=== PATIENT | male | born 1970 | race Caucasian/White ===

== ENCOUNTER 2022-12-07 15:07 | Observation (INO) ==
[2022-12-07] MEDS ORDERED: OPTIRAY 320 500ml IV ONE (15:20)
--- NOTE | 2022-12-07 15:20 | Emergency Department Note ---
Impression & Plan Chronic left arterial ischemic stroke, MCA (middle cerebral artery), Weakness, Diplopia, Stroke-like symptoms, Tobacco use ED Provider Note Provider: Klever Sarmiento MD DATE OF SERVICE: 12/07/2022 CHIEF COMPLAINT: Headache, dizzy HISTORY OF PRESENT ILLNESS: Patient is a 52-year-old gentleman history reported of CVA presenting via ambulance from apartment today with report of severe headache starting around 8 AM this morning with associated dizziness and diplopia per EMS report. Evidently had an old CVA and has some chronic right- sided deficit according to EMS. They states that maybe these are little bit worse today was made a stroke alert prior to arrival. States that his right arm and leg are working quite as well as speech is worse with the dizziness and diplopia starting at 8 AM. Did not take anything prior to arrival. Denies any trauma again. Does not see a doctor and does not take normal medications. Strokes he states about 8 years ago at [place]. Denies recent illness. PAST MEDICAL HISTORY: As noted above MEDICATIONS: Denies current home medications SOCIAL HISTORY: Lives by himself, smoker PHYSICAL EXAM: GENERAL: alert and oriented in no acute distress on stretcher Head: normocephalic and atraumatic EYES: No injection, discharge or icterus. PERRL, EOMI. NECK: Trachea midline. Supple. ENT: Mucous membranes pink and moist. Pharynx without erythema or exudate. LUNGS: Airway patent. No retractions. Breath sounds clear HEART: Regular rate and rhythm. No chest wall tenderness ABDOMEN: Soft and non-tender, without guarding or rebound. SKIN: Acyanotic, warm, dry, without rashes EXTREMITIES: Some chronic contracture of the right arm/wrist as well as in the right lower leg with some muscle wasting here as well as a right lower leg foot drop prostatic. No significant swelling of the lower extremities. NEUROLOGICAL: Patient with some dysarthria/slurred speech. May be a trace right facial droop. Paralysis of the right arm and leg. Does have some chronic contracture here as well as a foot brace on the right lower extremity but patient states the symptoms are worse. No sensation in the right arm and leg. No significant decrease in sensation in the face per his report. No gross visual field deficits appreciated. EK bpm normal sinus rhythm. No PVC or PAC. No acute ST segment elevation or depression with a QTc of 426. CONTINUOUS CARDIAC MONITORING: was ordered and showed a heart rate of 60s bpm in normal sinus rhythm Patient's laboratory studies and imaging reviewed. Differential includes Infection, dehydration, metabolic abnormality, hypo/hyperglycemia, electrolyte disturbance, anemia, hypoxia, cardiac sources, intracerebral event/neurologic, as well as other pathologies. IMPRESSION/MEDICAL DECISION MAKING: Patient with significant CVA history but not on any antiplatelet agents or home medications by report. Onset around 8 AM per the patient report without trauma. Dizziness diplopia with worsening right-sided weakness and near paralysis at this point of the arm and the leg with slurred speech. Does have some chronic deficits with the patient status worse. Unfortunately outside the window for thrombolytic therapy (TPA/TNK) given the timing (>4.5hrs). CTs and CTAs obtained to look for bleed as well as possible vascular issue. No seizure-like activity reported. No recent illness and afebrile here without leukocytosis doubt meningitis or encephalitis. Not severely hypertensive. May have some c omponent of recrudescence from prior large territory MCA issue. CT angiograms per radiology with out significant acute vascular abnormality noted. May still be small vessel CVA but outside of time window and the headache is somewhat atypical. Given his worse neurological symptoms discussed with him staying for further evaluation here. Hospitalist contacted. DIAGNOSIS: Headache, dizziness, right-sided paralysis, history of CVA DISPOSITION: Hospitalist will evaluate Patient was agreeable with this plan. Past Med/Surg History Medical History Chronic left arterial ischemic stroke, MCA (middle cerebral artery) Tobacco use Social History Smoking Status: Current every day smoker Preferred Language: Irish Feels Safe at Home: Yes Allergies Allergies Allergy/AdvReac Type Severity Reaction Status Date / Time No Known Allergies Allergy Mild Unverified 07/31/08 17:29 Home Meds Home Medications Medication Instructions Recorded Confirmed None (Patient States No Home Meds) ##0 07/31/08 Metoclopramide (Reglan) 10 mg PO ACHS ##0 06/24/09 REVIEWED ##0 10/02/09 Zolpidem Tartrate (Ambien *) 10 mg PO HS PRN ##0 10/02/09 !Med List Verified In Ed ##0 11/02/09 Previous Rx's Medication Instructions Recorded Cyclobenzaprine Hcl (Flexeril *) 10 mg PO TID 5 days ##0 09/09/07 Hydrocodone/Acetaminophen 1 tab PO Q4-6HR PRN ##25 09/09/07 5MG/500MG (Vicodin 5MG/500MG) Hydrocodone/Acetaminophen 1 - 2 tab PO Q6HR PRN ##20 07/31/08 5MG/500MG (Vicodin 5MG/500MG) Cyclobenzaprine Hcl (Flexeril *) 10 mg PO TID ##15 09/26/08 Propoxyphene Hcl (Darvon *) 1 tab PO Q4HR PRN ##20 09/26/08 Carisoprodol (Soma) 350 mg PO Q6HR PRN ##20 11/02/09 Hydrocodone/Acetaminophen 1 - 2 tabs PO Q6HR PRN ##10 11/02/09 5MG/500MG (Vicodin 5MG/500MG) REVIEWED ##0 11/02/09 Results & Data (ED) Vital Signs Vital Signs - 24 hr 12/07/22 15:07 12/07/22 15:27 12/07/22 15:26 Temperature 37.2 C Temperature Source Oral Pulse Rate 67 66 64 Pulse Rate from SpO2 Sensor 66 Respiratory Rate 18 21 Respiratory Effort / Characteristics Non-Labored Respiratory Depth Normal Respiratory Pattern Regular Blood Pressure 141/75 H 141/75 H Blood Pressure Mean 97 97 Pulse Oximetry 99 99 Oxygen Delivery Method Room Air Sepsis Recent Fever Within 48 Hours No Sepsis New/Unexplained Change in Mental Status N/A Sepsis Action Taken by Nursing No Action Required 12/07/22 16:10 12/07/22 16:30 12/07/22 17:58 Temperature Temperature Source Pulse Rate 49 L 56 L 73 Pulse Rate from SpO2 Sensor 55 L 75 Respiratory Rate 15 18 15 Respiratory Effort / Characteristics Respiratory Depth Respiratory Pattern Blood Pressure 114/70 131/78 135/108 H Blood Pressure Mean 84 95 117 Pulse Oximetry 100 94 Oxygen Delivery Method Sepsis Recent Fever Within 48 Hours Sepsis New/Unexplained Change in Mental Status Sepsis Action Taken by Nursing 12/07/22 18:00 12/07/22 18:30 12/07/22 19:23 Temperature Temperature Source Pulse Rate 54 L 65 62 Pulse Rate from SpO2 Sensor 55 L 62 Respiratory Rate 12 13 Respiratory Effort / Characteristics Respiratory Depth Respiratory Pattern Blood Pressure 157/76 H 173/87 H Blood Pressure Mean 103 115 Pulse Oximetry 100 98 Oxygen Delivery Method Sepsis Recent Fever Within 48 Hours Sepsis New/Unexplained Change in Mental Status Sepsis Action Taken by Nursing 12/07/22 19:52 Temperature Temperature Source Pulse Rate Pulse Rate from SpO2 Sensor Respiratory Rate Respiratory Effort / Characteristics Respiratory Depth Respiratory Pattern Blood Pressure 148/77 H Blood Pressure Mean Pulse Oximetry Oxygen Delivery Method Room Air Sepsis Recent Fever Within 48 Hours Sepsis New/Unexplained Change in Mental Status Sepsis Action Taken by Nursing Laboratory Data 12/07/22 15:11 12/07/22 15:11 Lab Results 12/07/22 12/07/22 12/07/22 Range/Units 15:11 15:11 15:11 WBC 7.73 (4.8-10.8) K/ul RBC 5.00 (4.70-6.10) M/uL Hgb 15.4 (14.0-18.0) g/dl POC Hgb (14.0-18.0) g/dl Hct 44.7 (42.0-52.0) % POC Hct (42-52) % MCV 89.4 (80.0-100.0) fL MCH 30.8 (25.0-34.0) pg MCHC 34.5 (32.0-36.0) g/dL RDW Std Deviation 44.3 (36.4-46.3) fL RDW Coeff of Siddharth 13.6 (11.5-14.5) % Plt Count 246 (130-400) K/uL MPV 9.7 (9.4-12.4) fL Immature Gran % (Auto) 0.4 % Neut % (Auto) 80.4 % Lymph % (Auto) 13.8 % [place] % (Auto) 4.1 % Eos % (Auto) 0.3 % Baso % (Auto) 1.0 % Neut # (Auto) 6.21 (1.40-6.50) K/uL Lymph # (Auto) 1.07 L (1.2-3.4) K/uL [place] # (Auto) 0.32 (0.11-0.59) K/uL Eos # (Auto) 0.02 (0-0.50) K/uL Baso # (Auto) 0.08 (0-0.2) K/uL Immature Gran # (Auto) 0.03 (0.01-0.20) K/uL PT 10.7 (9.0-12.0) Seconds INR 1.0 (0.9-1.1) APTT 27.3 (21.0-31.0) Seconds PTT Ratio 1.0 POC Sodium (135-144) mmol/L Sodium 138 (136-145) mmol/L POC Potassium (3.3-5.0) mmol/L Potassium 3.7 (3.5-5.1) mmol/L POC Chloride (101-112) mmol/L Chloride 106 (98-107) mmol/L Carbon Dioxide 25 (21-32) mmol/L POC Total CO2 (24-31) mmol/L Anion Gap 7 (3-11) POC Anion Gap (16-25) mmol/L POC BUN (7-18) mg/dl BUN 18 (6-23) mg/dl Creatinine 0.87 (0.6-1.4) mg/dl POC Creatinine (0.6-1.3) mg/dl Est Cr Clr Drug Dosing Not Reportable Est GFR ( Amer) 114.2 ml/min Est GFR (Non-Af Amer) 98.5 ml/min BUN/Creatinine Ratio 20.7 H (10-20) Glucose 84 (70-99(Fasting)) mg/dl POC Glucose (other) (70-99) mg/dl Calcium 9.3 (8.6-10.3) mg/dl POC Ioniz Calcium Elisabeth (1.12-1.32) mmol/l Magnesium 2.1 (1.7-2.4) mg/dl Total Bilirubin 0.4 (0.2-1.0) mg/dl AST 16 (13-39) U/L ALT 15 (7-52) U/L Alkaline Phosphatase 43 (34-104) U/L Troponin I High Sens 2.6 (0-20) pg/ml Total Protein 6.7 (6.0-8.3) gm/dl Albumin 3.9 (3.4-5.0) gm/dl Globulin 2.8 (2.5-4.0) gm/dl Albumin/Globulin Ratio 1.4 (0.9-2) Urine Color Urine Appearance (Clear) Urine pH (4.5-7.5) Ur Specific [place] (1.000-1.030) Urine Protein (Negative) Urine Glucose (UA) (Negative) Urine Ketones (Negative) Urine Blood (Negative) Urine Nitrite (Negative) Urine Bilirubin (Negative) Urine Urobilinogen (Negative) Ur Leukocyte Esterase (Negative) SARS-CoV-2, RNA, NAAT (NEGATIVE) 12/07/22 12/07/22 12/07/22 Range/Units 15:26 15:38 16:00 WBC (4.8-10.8) K/ul RBC (4.70-6.10) M/uL Hgb (14.0-18.0) g/dl POC Hgb 14.3 (14.0-18.0) g/dl Hct (42.0-52.0) % POC Hct 42 (42-52) % MCV (80.0-100.0) fL MCH (25.0-34.0) pg MCHC (32.0-36.0) g/dL RDW Std Deviation (36.4-46.3) fL RDW Coeff of Siddharth (11.5-14.5) % Plt Count (130-400) K/uL MPV (9.4-12.4) fL Immature Gran % (Auto) % Neut % (Auto) % Lymph % (Auto) % [place] % (Auto) % Eos % (Auto) % Baso % (Auto) % Neut # (Auto) (1.40-6.50) K/uL Lymph # (Auto) (1.2-3.4) K/uL [place] # (Auto) (0.11-0.59) K/uL Eos # (Auto) (0-0.50) K/uL Baso # (Auto) (0-0.2) K/uL Immature Gran # (Auto) (0.01-0.20) K/uL PT (9.0-12.0) Seconds INR (0.9-1.1) APTT (21.0-31.0) Seconds PTT Ratio POC Sodium 137 (135-144) mmol/L Sodium (136-145) mmol/L POC Potassium 3.7 (3.3-5.0) mmol/L Potassium (3.5-5.1) mmol/L POC Chloride 101 (101-112) mmol/L Chloride (98-107) mmol/L Carbon Dioxide (21-32) mmol/L POC Total CO2 26 (24-31) mmol/L Anion Gap (3-11) POC Anion Gap 15.0 L (16-25) mmol/L POC BUN 23 H (7-18) mg/dl BUN (6-23) mg/dl Creatinine (0.6-1.4) mg/dl POC Creatinine 0.8 (0.6-1.3) mg/dl Est Cr Clr Drug Dosing Est GFR ( Amer) ml/min Est GFR (Non-Af Amer) ml/min BUN/Creatinine Ratio (10-20) Glucose (70-99(Fasting)) mg/dl POC Glucose (other) 113 H (70-99) mg/dl Calcium (8.6-10.3) mg/dl POC Ioniz Calcium Elisabeth 1.17 (1.12-1.32) mmol/l Magnesium (1.7-2.4) mg/dl Total Bilirubin (0.2-1.0) mg/dl AST (13-39) U/L ALT (7-52) U/L Alkaline Phosphatase (34-104) U/L Troponin I High Sens (0-20) pg/ml Total Protein (6.0-8.3) gm/dl Albumin (3.4-5.0) gm/dl Globulin (2.5-4.0) gm/dl Albumin/Globulin Ratio (0.9-2) Urine Color Yellow Urine Appearance Clear (Clear) Urine pH 5.0 (4.5-7.5) Ur Specific [place] > 1.045 H (1.000-1.030) Urine Protein Negative (Negative) Urine Glucose (UA) 1+ H (Negative) Urine Ketones Negative (Negative) Urine Blood Negative (Negative) Urine Nitrite Negative (Negative) Urine Bilirubin Negative (Negative) Urine Urobilinogen Negative (Negative) Ur Leukocyte Esterase Negative (Negative) SARS-CoV-2, RNA, NAAT NEGATIVE (NEGATIVE) Administered Medications Discontinued Medications Aspirin (Aspirin 300 Mg Supp) 300 mg WA NOW STA Stop: 12/07/22 16:58 Last Admin: 12/07/22 17:49 Dose: 300 mg Documented By: GERDA Acetaminophen (Ofirmev) 1,000 mg in 100 mls @ 400 mls/hr IV NOW STA Stop: 12/07/22 15:57 Last Infusion: 12/07/22 16:15 Dose: 0 mls/hr Documented By: Admin: 12/07/22 15:59 Dose: 400 mls/hr Documented By: GERDA Ioversol (Optiray 320 500ml) 109 ml IV ONCE ONE Stop: 12/07/22 15:21 Last Admin: 12/07/22 15:20 Dose: 109 ml Documented By: DOMINGO Metoclopramide HCl (Metoclopramide Hcl Inj 5 Mg/Ml 2 Ml Vial) 5 mg IV ONE ONE Stop: 12/07/22 15:47 Last Admin: 12/07/22 15:58 Dose: 5 mg Documented By: GERDA Imaging Data Radiologist's Impression: Head CT 12/07/22 15:06 CT head/brain wo con CLINICAL HISTORY: 52 years-old Male with neuro deficit, acute stroke suspected. Acute stroke like symptoms TECHNIQUE: Multiple axial CT images of the head were obtained without contrast. A dose lowering technique was utilized adhering to the principles of ALARA. CT DOSE: 1195.65 mGy.cm COMPARISON: None. FINDINGS: No acute intracranial hemorrhage, midline shift, intracranial mass, hydrocephalus, territorial ischemia or abnormal extra-axial collection. Calcifications of the falx cerebri. Large chronic left MCA infarct with encephalomalacia and ex vacuo ventriculomegaly of the left lateral ventricle. Calcifications of the falx cerebri. The calvarium is intact. Metopic suture. 1.9 cm calcified structure within the left ethmoid air cells on image 4 series 3, possibly an osteoma. Small left mastoid effusion. IMPRESSION: 1. No acute intracranial abnormality. 2. Large chronic left MCA infarct. ACT 112: Negative or not required by law. The above report was generated using voice recognition software. It may contain grammatical, syntax or spelling errors. Electronically signed by: Juan Contreras M.D. 12/07/2022 3:25 PM Head CTA 12/07/22 15:06 CT ANGIOGRAM OF THE BRAIN; CT ANGIOGRAM OF THE NECK CLINICAL HISTORY: Neurological deficit. Stroke like symptoms. Right-sided weakness. COMPARISON STUDY: Unenhanced CT of the brain performed the same day 12/07/2022. TECHNIQUE: Following the IV administration of 109 of Optiray 320, CT angiogram of the head and neck was performed from the aortic arch to the vertex. Images are reviewed in the axial, sagittal, and coronal planes. 3-D MIPS images are created and assessed. IV contrast was administered without complication. All measurements were calculated based on NASCET criteria. A dose lowering technique was utilized adhering to the principles of ALARA. FINDINGS: Brain parenchyma: Left MCA territory encephalomalacia is consistent with a remote insult. There is no evidence of hemorrhage, mass effect, or acute territorial ischemia noting angiographic phase technique. There is no evidence of enhancing mass lesion on the angiogram phase images. The ventricles, sulci, and cisterns are normal in configuration. Mehta-white matter differentiation is preserved. No extra-axial fluid collection is seen. Thoracic aorta: Visualized portions of the thoracic aorta are normal in caliber. The aortic arch demonstrates standard 3-vessel anatomy. Right carotid arterial system: The right common carotid arteries widely patent, as are the right internal and external carotid arteries. Calcified plaque is noted in the carotid bulb. Left carotid arterial system: The left common carotid artery is widely patent, as are the left internal and external carotid arteries. Calcified plaque is noted in the carotid bulb. Vertebral arteries: Widely patent bilaterally and codominant. Subclavian arteries: Widely patent bilaterally. Intracranial vasculature: The internal carotid arteries are patent at the skull base, as are the anterior and middle cerebral arteries bilaterally. There is pruning of the peripheral branches of the left MCA territory, likely due to remote hemispheric infarct. The vertebrobasilar system and posterior cerebral arteries are patent. The vertebral arteries are codominant. There is no aneurysm, high-grade stenosis, or focal vessel cut off seen throughout the intracranial circulation. Jugular veins: Patent bilaterally. Dural sinuses: Patent. Lung apices: There is mild emphysematous change. Upper lobe lung parenchyma is otherwise clear as imaged. Soft tissues: The visualized pharyngeal soft tissues are normal in appearance noting angiographic phase technique. The oropharyngeal airway appears widely patent. The salivary and thyroid glands are normal in appearance. No cervical lymphadenopathy is seen. Skeletal structures: The calvarium appears intact. The cervical spine is maintained noting mild multilevel spondylosis. No lytic or blastic lesion is seen. Orbits: The bony orbits are intact. Orbital contents are normal as visualized. Sinuses and mastoids: There is moderate mucosal thickening in the right sphenoid sinus. 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 The remaining paranasal sinuses are clear. There is a small left mastoid effusion. The right mastoid air cells are well pneumatized. Cerumen is noted within the external auditory canals. IMPRESSION: 1.There is no evidence of hemorrhage, mass effect, or acute territorial ischemia noting angiographic phase technique. 2. Remote left MCA territory infarct. 3. Unremarkable CT angiogram of the brain. 4. Unremarkable CT angiogram of the neck. 5. Mild emphysema. ACT 112: Negative or not required by law. Electronically signed by: Nick Valadez M.D. 12/07/2022 3:38 PM Neck CTA 12/07/22 15:06 CT ANGIOGRAM OF THE BRAIN; CT ANGIOGRAM OF THE NECK CLINICAL HISTORY: Neurological deficit. Stroke like symptoms. Right-sided weakness. COMPARISON STUDY: Unenhanced CT of the brain performed the same day 12/07/2022. TECHNIQUE: Following the IV administration of 109 of Optiray 320, CT angiogram of the head and neck was performed from the aortic arch to the vertex. Images are reviewed in the axial, sagittal, and coronal planes. 3-D MIPS images are created and assessed. IV contrast was administered without complication. All measurements were calculated based on NASCET criteria. A dose lowering technique was utilized adhering to the principles of ALARA. FINDINGS: Brain parenchyma: Left MCA territory encephalomalacia is consistent with a remote insult. There is no evidence of hemorrhage, mass effect, or acute territorial ischemia noting angiographic phase technique. There is no evidence o f enhancing mass lesion on the angiogram phase images. The ventricles, sulci, and cisterns are normal in configuration. Mehta-white matter differentiation is preserved. No extra-axial fluid collection is seen. Thoracic aorta: Visualized portions of the thoracic aorta are normal in caliber. The aortic arch demonstrates standard 3-vessel anatomy. Right carotid arterial system: The right common carotid arteries widely patent, as are the right internal and external carotid arteries. Calcified plaque is noted in the carotid bulb. Left carotid arterial system: The left common carotid artery is widely patent, as are the left internal and external carotid arteries. Calcified plaque is noted in the carotid bulb. Vertebral arteries: Widely patent bilaterally and codominant. Subclavian arteries: Widely patent bilaterally. Intracranial vasculature: The internal carotid arteries are patent at the skull base, as are the anterior and middle cerebral arteries bilaterally. There is pruning of the peripheral branches of the left MCA territory, likely due to remote hemispheric infarct. The vertebrobasilar system and posterior cerebral arteries are patent. The vertebral arteries are codominant. There is no aneurysm, high-grade stenosis, or focal vessel cut off seen throughout the intracranial circulation. Jugular veins: Patent bilaterally. Dural sinuses: Patent. Lung apices: There is mild emphysematous change. Upper lobe lung parenchyma is otherwise clear as imaged. Soft tissues: The visualized pharyngeal soft tissues are normal in appearance noting angiographic phase technique. The oropharyngeal airway appears widely patent. The salivary and thyroid glands are normal in appearance. No cervical lymphadenopathy is seen. Skeletal structures: The calvarium appears intact. The cervical spine is maintained noting mild multilevel spondylosis. No lytic or blastic lesion is seen. Orbits: The bony orbits are intact. Orbital contents are normal as visualized. Sinuses and mastoids: There is moderate mucosal thickening in the right sphenoid sinus. 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 The remaining paranasal sinuses are clear. There is a small left mastoid effusion. The right mastoid air cells are well pneumatized. Cerumen is noted within the external auditory canals. IMPRESSION: 1.There is no evidence of hemorrhage, mass effect, or acute territorial ischemia noting angiographic phase technique. 2. Remote left MCA territory infarct. 3. Unremarkable CT angiogram of the brain. 4. Unremarkable CT angiogram of the neck. 5. Mild emphysema. ACT 112: Negative or not required by law. Electronically signed by: Nick Valadez M.D. 12/07/2022 3:38 PM Brain MRI 12/07/22 16:29 MR brain wo con CLINICAL HISTORY: cva TECHNIQUE: Multiplanar and multisequence MR images of the brain were obtained without intravenous contrast. Comparison: Comparison is made to CTA head and neck 12/07/2022 FINDINGS: No abnormal restricted diffusion is identified. The white matter is unremarkable. The ventricular system is normal in appearance. Large MCA focus of encephalomalacia is seen compatible with prior infarct. There is no mass effect or midline shift. Hemosiderin deposition is seen about the old infarct site. Calcifications of the anterior falx are noted. No extra axial fluid collections are seen. The corpus callosum, pituitary gland, and cerebellar tonsils appear grossly unremarkable. Flow voids of the major intracranial arterial vessels are identified. The imaged portions of the paranasal sinuses, mastoid air cells, and orbits are u nremarkable. IMPRESSION: No acute abnormalities are seen. Prominent encephalomalacia is seen at the site of prior left MCA infarct. ACT 112: Negative or not required by law. Electronically signed by: Aristeo Bolton M.D. 12/07/2022 5:59 PM Discharge Plan Visit Data Chief Complaint: Stroke Alert Stated Complaint: STROKE ALERT ED Provider: Klever Sarmiento Discharge Problem: Chronic left arterial ischemic stroke, MCA (middle cerebral artery), Weakness, Diplopia, Stroke-like symptoms, Tobacco use Patient Disposition: Admitted As Inpatient Discharge Instructions Interventions: ED Discharge Assessment Last Done: 12/07/22 19:52 Forms Stand Alone Forms: [facility] Prescriptions Prescriptions: No Action Cyclobenzaprine Hcl (Flexeril *) 10 MG tablet 10 mg PO TID 5 Days Qty: 0 0RF Hydrocodone/Acetaminophen 5MG/500MG (Vicodin 5MG/500MG) tablet 1 tab PO Q4-6HR PRN Qty: 25 0RF Rx Instructions: PAIN None (Patient States No Home Meds) . Qty: 0 Hydrocodone/Acetaminophen 5MG/500MG (Vicodin 5MG/500MG) tablet 1 - 2 tab PO Q6HR PRN Qty: 20 0RF Cyclobenzaprine Hcl (Flexeril *) 10 MG tablet 10 mg PO TID Qty: 15 0RF Propoxyphene Hcl (Darvon *) 65 MG capsule 1 tab PO Q4HR PRN Qty: 20 0RF Rx Instructions: PAIN Metoclopramide (Reglan) 10 MG tablet 10 mg PO ACHS Qty: 0 REVIEWED Qty: 0 Zolpidem Tartrate (Ambien *) 10 MG tablet 10 mg PO HS PRN Qty: 0 Patient Comments: PRN SLEEP !Med List Verified In Ed . Qty: 0 Carisoprodol (Soma) 350 MG tablet 350 mg PO Q6HR PRN Qty: 20 0RF Hydrocodone/Acetaminophen 5MG/500MG (Vicodin 5MG/500MG) tablet 1 - 2 tabs PO Q6HR PRN Qty: 10 0RF Referrals Referrals: PCP,NO [Primary Care Provider] -
--- NOTE | 2022-12-07 15:27 | CT Scan Report ---
CT head/brain wo con CLINICAL HISTORY: 52 years-old Male with neuro deficit, acute stroke suspected. Acute stroke like sy mptoms TECHNIQUE: Multiple axial CT images of the head were obtained without contrast. A dose lowering tech nique was utilized adhering to the principles of ALARA. CT DOSE: 1195.65 mGy.cm COMPARISON: None. FINDINGS: No acute intracranial hemorrhage, midline shift, intracranial mass, hydrocephalus, territorial ischem ia or abnormal extra-axial collection. Calcifications of the falx cerebri. Large chronic left MCA inf arct with encephalomalacia and ex vacuo ventriculomegaly of the left lateral ventricle. Calcification s of the falx cerebri. The calvarium is intact. Metopic suture. 1.9 cm calcified structure within the left ethmoid air cells on image 4 series 3, possibly an osteoma. Small left mastoid effusion. IMPRESSION: 1. No acute intracranial abnormality. 2. Large chronic left MCA infarct. ACT 112: Negative or not required by law. The above report was generated using voice recognition software. It may contain grammatical, syntax o r spelling errors. Electronically signed by: Juan Contreras M.D. 12/07/2022 3:25 PM
[2022-12-07 15:32] LABS: Basophils # (auto) 0.08 K/uL (0-0.2); Eosinophils # (auto) 0.02 K/uL (0-0.50); Eosinophils % (auto) 0.3 %; Hematocrit (blood only) 44.7 % (42.0-52.0); Hemoglobin 15.4 g/dl (14.0-18.0); Immature Granulocytes # (auto) 0.03 K/uL (0.01-0.20); Immature Granulocytes % (auto) 0.4 %; Lymphocytes # (auto) 1.07 K/uL (1.2-3.4); Lymphocytes % (auto) 13.8 %; Mean Corpuscular Hemoglobin 30.8 pg (25.0-34.0); Mean Corpuscular Hgb Conc 34.5 g/dL (32.0-36.0); Mean Corpuscular Volume 89.4 fL (80.0-100.0); Mean Platelet Volume 9.7 fL (9.4-12.4); Monocytes # (auto) 0.32 K/uL (0.11-0.59); Monocytes % (auto) 4.1 %; Neutrophils # (auto) 6.21 K/uL (1.40-6.50); Neutrophils % (auto) 80.4 %; Platelet Count 246 K/uL (130-400); RDW Coefficient of Variation 13.6 % (11.5-14.5); RDW Standard Deviation 44.3 fL (36.4-46.3); White Blood Count 7.73 K/ul (4.8-10.8)
[2022-12-07 15:38] LABS: iSTAT Creatinine 0.8 mg/dl (0.6-1.3); iSTAT Hemoglobin 14.3 g/dl (14.0-18.0); iSTAT Ionized Calcium 1.17 mmol/l (1.12-1.32); iSTAT Potassium 3.7 mmol/L (3.3-5.0)
--- NOTE | 2022-12-07 15:39 | CT Scan Report ---
CT ANGIOGRAM OF THE BRAIN; CT ANGIOGRAM OF THE NECK CLINICAL HISTORY: Neurological deficit. Stroke like symptoms. Right-sided weakness. COMPARISON STUDY: Unenhanced CT of the brain performed the same day 12/07/2022. TECHNIQUE: Following the IV administration of 109 of Optiray 320, CT angiogram of the head and neck w as performed from the aortic arch to the vertex. Images are reviewed in the axial, sagittal, and nadege nal planes. 3-D MIPS images are created and assessed. IV contrast was administered without complicati on. All measurements were calculated based on NASCET criteria. A dose lowering technique was utilize d adhering to the principles of ALARA. FINDINGS: Brain parenchyma: Left MCA territory encephalomalacia is consistent with a remote insult. There is no evidence of hemorrhage, mass effect, or acute territorial ischemia noting angiographic phase techniq ue. There is no evidence of enhancing mass lesion on the angiogram phase images. The ventricles, sulc i, and cisterns are normal in configuration. Mehta-white matter differentiation is preserved. No extra -axial fluid collection is seen. Thoracic aorta: Visualized portions of the thoracic aorta are normal in caliber. The aortic arch demo nstrates standard 3-vessel anatomy. Right carotid arterial system: The right common carotid arteries widely patent, as are the right inte rnal and external carotid arteries. Calcified plaque is noted in the carotid bulb. Left carotid arterial system: The left common carotid artery is widely patent, as are the left design engineering intern al and external carotid arteries. Calcified plaque is noted in the carotid bulb. Vertebral arteries: Widely patent bilaterally and codominant. Subclavian arteries: Widely patent bilaterally. Intracranial vasculature: The internal carotid arteries are patent at the skull base, as are the ante rior and middle cerebral arteries bilaterally. There is pruning of the peripheral branches of the lef t MCA territory, likely due to remote hemispheric infarct. The vertebrobasilar system and posterior c erebral arteries are patent. The vertebral arteries are codominant. There is no aneurysm, high-grade stenosis, or focal vessel cut off seen throughout the intracranial circulation. Jugular veins: Patent bilaterally. Dural sinuses: Patent. Lung apices: There is mild emphysematous change. Upper lobe lung parenchyma is otherwise clear as reji ged. Soft tissues: The visualized pharyngeal soft tissues are normal in appearance noting angiographic pha se technique. The oropharyngeal airway appears widely patent. The salivary and thyroid glands are nor mal in appearance. No cervical lymphadenopathy is seen. Skeletal structures: The calvarium appears intact. The cervical spine is maintained noting mild multi level spondylosis. No lytic or blastic lesion is seen. Orbits: The bony orbits are intact. Orbital contents are normal as visualized. Sinuses and mastoids: There is moderate mucosal thickening in the right sphenoid sinus. 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 The remaining paranasal sinuses are clear. There is a small l eft mastoid effusion. The right mastoid air cells are well pneumatized. Cerumen is noted within the e xternal auditory canals. IMPRESSION: 1.There is no evidence of hemorrhage, mass effect, or acute territorial ischemia noting angiographic phase technique. 2. Remote left MCA territory infarct. 3. Unremarkable CT angiogram of the brain. 4. Unremarkable CT angiogram of the neck. 5. Mild emphysema. ACT 112: Negative or not required by law. Electronically signed by: Nick Valadez M.D. 12/07/2022 3:38 PM
[2022-12-07] MEDS ORDERED: ACETAMINOPHEN 1,000 MG/100 ML VIAL IV STA (15:43)
[2022-12-07] MEDS ORDERED: METOCLOPRAMIDE HCL INJ 5 MG/ML 2 ML VIAL IV ONE (15:46)
[2022-12-07 16:03] LABS: Partial Thromboplastin Time 27.3 Seconds (21.0-31.0); Prothrombin Time 10.7 Seconds (9.0-12.0)
[2022-12-07 16:15] LABS: Alanine Aminotransferase 15 U/L (7-52); Albumin Globulin Ratio 1.4 (0.9-2); Albumin Level 3.9 gm/dl (3.4-5.0); Alkaline Phosphatase 43 U/L (34-104); Anion Gap 7 (3-11); Aspartate Aminotransferase 16 U/L (13-39); BUN Creatinine Ratio 20.7 (10-20); Bilirubin,Total 0.4 mg/dl (0.2-1.0); Blood Urea Nitrogen 18 mg/dl (6-23); Calcium 9.3 mg/dl (8.6-10.3); Carbon Dioxide 25 mmol/L (21-32); Chloride 106 mmol/L (98-107); Est GFR (African American) 114.2 ml/min; Est GFR (Non-African American) 98.5 ml/min; Globulin 2.8 gm/dl (2.5-4.0); Glucose 84 mg/dl (70-99(Fasting)); Magnesium 2.1 mg/dl (1.7-2.4); Potassium 3.7 mmol/L (3.5-5.1); Sodium 138 mmol/L (136-145); Total Protein 6.7 gm/dl (6.0-8.3); Troponin I High Sensitivity 2.6 pg/ml (0-20)
[2022-12-07 16:16] LABS: Appearance Urine Clear (Clear); Bilirubin Urine Negative (Negative); Blood Urine Negative (Negative); Color Urine Yellow; Glucose Urine UA 1+ (Negative); Ketones Urine Negative (Negative); Leukocyte Esterase Urine Negative (Negative); Nitrite Urine Negative (Negative); Protein Urine Negative (Negative); Specific Gravity Urine > 1.045 (1.000-1.030); Urobilinogen Urine Negative (Negative)
--- NOTE | 2022-12-07 16:29 | History & Physical Report ---
Date of Service December 07, 2022 Assessment & Plan (1) Chronic left arterial ischemic stroke, MCA (middle cerebral artery): Plan: Min is a 52-year-old male with a history of prior CVA who presented with headache, dizziness, and double vision. Patient does have chronic right-sided weakness from his prior CVA, there was concern that this weakness was acutely worse. He was brought to the ER as a stroke alert. Diplopia, Weakness w/ HX CVA - Hx L MCA Stroke. Chronic R foot drop base and R arm weakness now with complete sensory and strength loss of right upper and right lower extremity in addition to sensory loss of right V1/V2/V3. Right facial strength is intact - H/a, weakness, diplopia, and complete loss of strength in R arm and leg since 8am. EKG: Normal sinus rhythm, QTc 426, no ST segment changes or T wave inversions. No known history of A-fib. - CTA-H/N:1.There is no evidence of hemorrhage, mass effect, or acute territorial ischemia noting angiographic phase technique. 2. Remote left MCA territory infarct. 3. Unremarkable CT angiogram of the brain. 4. Unremarkable CT angiogram of the neck.5. Mild emphysema. - CT-H: 1. No acute intracranial abnormality. Large chronic left MCA infarct. Given aspirin on admission, patient failed swallow and is not able to be given Plavix MRI pending Permissive hypertension goal parameters 220/110, labetalol 5 mg as needed up to 3 doses as needed for antihypertensive control for 24 hours Strict cautions, aspiration precautions, fall precautions Target Plavix 75 mg daily moving forward and statin. Did discuss with neurology. If patient is limited to follow-up and highly likely to be lost to follow-up may be beneficial to do DAPT for 3 weeks and then convert to aspirin 81 mg as this is readily available [id number] EKG without acute ischemic changes, no evidence of A-fib Echo with bubble study is pending Headache Patient does have a headache, however this is high frontal slightly left-sided and midline. He denies falls/injuries. No overlying contusion. There are no overlying vesicles or lesions or erythema, however it is very sensitive even to soft touch. No bleed or contusion noted on head CT. He is afebrile and without photosensitivity. Continue to follow daily, if any skin eruption begins/evidence of shingles initiate acyclovir. We will complete stroke work-up at this time Adequate blood pressure control at time of bedside evaluation Tobacco abuse Patient with ongoing cigarette use. Counseled that this doubles the risks of OK and CVA, cessation recommended. Patient reports that he has done smoking after this Nicotine patch while inpatient offered, patient declines. DVT prophylaxis: Heparin Diet: Pending speech eval CODE STATUS: DNR/DNI Disposition: PCU for IV antihypertensives if required and stroke monitoring (2) Weakness: (3) Diplopia: (4) Stroke-like symptoms: (5) Tobacco use: History of Present Illness Primary Care Provider: NO PCP Min is a 52-year-old male with a history of prior CVA who presented with headache, dizziness, and double vision. Patient does have chronic right-sided weakness from his prior CVA, there was concern that this weakness was acutely worse. He was brought to the ER as a stroke alert. Per ER: At bedside patient notes that his arm and leg strength is at baseline, but the dizziness/double vision which started at around 8 AM is new and worse. He has not had any falls, injuries, or trauma. Patient does not follow with a primary physician, his prior stroke was evaluated to [place] 8 years ago, and he is not currently taking any medications. Specifically he is not taking aspirin, Plavix, Brilinta, or effient. Patient was evaluated as a stroke alert. Patient arrived to the ER and was not a TNKase candidate due to duration of symptom onset. Patient seen at the bedside. He has complete hemiparesis and sensory loss of soft touch of his right arm and right leg. He reports he had some movement of this previously, currently has none. He reports he continues to have double vision. He continues to have a headache which is sensitive to touch in the high forehead slightly off to the left side. No tenderness overlying his temples, jaw, or cheeks. He reports he has not seen a doctor in many years. Does not take any occasions including aspirin or aspirin-like medicines. He has not had chest pressure or chest pain. No palpitations. No lightheadedness/dizziness. No nausea/vomiting. He is a current smoker, 1 pack lasts about 3 days. He has smoked since teenage years. Does not use alcohol. Denies other substance use. Denies other symptoms. Denies surgeries. Denies medication allergies. Family history reviewed. DNR/DNI. Allergies Allergy/AdvReac Type Severity Reaction Status Date / Time No Known Allergies Allergy Mild Unverified 07/31/08 17:29 Home Medications Medication Instructions Recorded Confirmed Type Cyclobenzaprine Hcl (Flexeril *) 10 mg PO TID 5 days ##0 09/09/07 Rx Hydrocodone/Acetaminophen 1 tab PO Q4-6HR PRN ##25 09/09/07 Rx 5MG/500MG (Vicodin 5MG/500MG) Hydrocodone/Acetaminophen 1 - 2 tab PO Q6HR PRN ##20 07/31/08 Rx 5MG/500MG (Vicodin 5MG/500MG) None (Patient States No Home Meds) ##0 07/31/08 History Cyclobenzaprine Hcl (Flexeril *) 10 mg PO TID ##15 09/26/08 Rx Propoxyphene Hcl (Darvon *) 1 tab PO Q4HR PRN ##20 09/26/08 Rx Metoclopramide (Reglan) 10 mg PO ACHS ##0 06/24/09 History REVIEWED ##0 10/02/09 History Zolpidem Tartrate (Ambien *) 10 mg PO HS PRN ##0 10/02/09 History !Med List Verified In Ed ##0 11/02/09 History Carisoprodol (Soma) 350 mg PO Q6HR PRN ##20 11/02/09 Rx Hydrocodone/Acetaminophen 1 - 2 tabs PO Q6HR PRN ##10 11/02/09 Rx 5MG/500MG (Vicodin 5MG/500MG) REVIEWED ##0 11/02/09 Rx Past Med/Surg History Medical History Chronic left arterial ischemic stroke, MCA (middle cerebral artery) Tobacco use Social History Smoking Status: Current every day smoker Preferred Language: Libyan Feels Safe at Home: Yes Review of Systems Review of Systems: All systems reviewed & are unremarkable except as noted in HPI & below Physical Exam Physical Exam: General: A&Ox3. NAD. Cooperative. Skin: High midline/left-sided forehead with hyperesthesia to soft touch, no crepitus or contusion. No overlying erythema or lesions/vesicles. Pulm: CTAB A&P. -wheezes, -rales, -rhonchi. Symmetrical chest rise. No increased work of breathing. No respiratory distress. Cardiac: RRR, -mrg. Radial pulses intact and symmetrical. Abdominal: Nontender, nondistended, soft. BS present. CRANIAL NERVES: II: Pupils equal and reactive. Able to track horizontal gaze without deficit, endorses diplopia throughout EOM testing III, IV, : EOM intact, no gaze preference or deviation, no nystagmus. V: Loss of sensation to soft touch on right V1/V2/V3 distributions. Left-sided sensation intact. VII: no asymmetry, no nasolabial fold flattening VIII: normal hearing to speech IX, X: normal palatal elevation, no uvular deviation XII: midline tongue protrusion Extremity: Complete hemiparesis and sensory loss to soft touch of the right upper and left lower extremity. LUE: 5/5 Shoulder internal rotation, external rotation, flexion, extension, abduction, adduction 5/5 Elbow flexion/extension, wrist flexion/extension 5/5 director emergency strength, finger flexion/extension, interosseus LLE: 5/5 to hip flexion/extension, knee flexion/extension, ankle dorsiflexion/plantarflexion Sensation of soft touch intact in the left upper and left lower extremity without deficit Results & Data Results & Data Vital Signs (Past 12 Hours) Vital Signs Temp Pulse Resp BP Pulse Ox O2 Del Method 12/07/22 15:26 64 21 141/75 H 99 12/07/22 15:27 66 12/07/22 15:07 37.2 C 67 18 141/75 H 99 Room Air PG Care Time/CCT Total # of Minutes Spent Total Time Spent with Patient: Total time spent is greater than 50% in coordination of care (as documented) at patient's floor/unit and/or counseling patient: Coding Level of Care Code 51749 INT INP/OBS CARE 3/75MIN Diagnoses Chronic left arterial ischemic stroke, MCA (middle cerebral artery) I69.30 Weakness R53.1 Diplopia H53.2 Stroke-like symptoms R29.90 Tobacco use Z72.0
[2022-12-07] MEDS ORDERED: ASPIRIN 300 MG SUPP PR STA (16:57)
--- NOTE | 2022-12-07 18:00 | Magnetic Resonance Report ---
MR brain wo con CLINICAL HISTORY: cva TECHNIQUE: Multiplanar and multisequence MR images of the brain were obtained without intravenous con trast. Comparison: Comparison is made to CTA head and neck 12/07/2022 FINDINGS: No abnormal restricted diffusion is identified. The white matter is unremarkable. The ventricular sys tem is normal in appearance. Large MCA focus of encephalomalacia is seen compatible with prior infarc t. There is no mass effect or midline shift. Hemosiderin deposition is seen about the old infarct sit e. Calcifications of the anterior falx are noted. No extra axial fluid collections are seen. The alice us callosum, pituitary gland, and cerebellar tonsils appear grossly unremarkable. Flow voids of the major intracranial arterial vessels are identified. The imaged portions of the para nasal sinuses, mastoid air cells, and orbits are unremarkable. IMPRESSION: No acute abnormalities are seen. Prominent encephalomalacia is seen at the site of prior left MCA inf arct. ACT 112: Negative or not required by law. Electronically signed by: Aristeo Bolton M.D. 12/07/2022 5:59 PM
[2022-12-07] MEDS ORDERED: LABETALOL HCL IV 5 MG/ML 20ML IV PRN (20:33)
[2022-12-07] MEDS ORDERED: ACETAMINOPHEN 1,000 MG/100 ML VIAL IV PRN (20:33)
[2022-12-07] MEDS: HEPARIN SOD 5,000 UNIT/0.5 ML VIAL SQ SCH (21:06)
[2022-12-08 05:05] LABS: Basophils # (auto) 0.09 K/uL (0-0.2); Eosinophils # (auto) 0.06 K/uL (0-0.50); Eosinophils % (auto) 0.7 %; Hematocrit (blood only) 42.9 % (42.0-52.0); Hemoglobin 15.1 g/dl (14.0-18.0); Immature Granulocytes # (auto) 0.03 K/uL (0.01-0.20); Immature Granulocytes % (auto) 0.3 %; Lymphocytes # (auto) 3.47 K/uL (1.2-3.4); Lymphocytes % (auto) 38.8 %; Mean Corpuscular Hemoglobin 30.3 pg (25.0-34.0); Mean Corpuscular Hgb Conc 35.2 g/dL (32.0-36.0); Mean Corpuscular Volume 86.1 fL (80.0-100.0); Mean Platelet Volume 9.4 fL (9.4-12.4); Monocytes # (auto) 0.86 K/uL (0.11-0.59); Monocytes % (auto) 9.6 %; Neutrophils # (auto) 4.43 K/uL (1.40-6.50); Neutrophils % (auto) 49.6 %; Platelet Count 227 K/uL (130-400); RDW Coefficient of Variation 13.6 % (11.5-14.5); RDW Standard Deviation 42.6 fL (36.4-46.3); Red Blood Count 4.98 M/uL (4.70-6.10); White Blood Count 8.94 K/ul (4.8-10.8)
[2022-12-08 05:25] LABS: Calcium 9.2 mg/dl (8.6-10.3); Chol HDL Ratio 4.8 (0-5); Creatinine Clr Calc Pharmacy 136.1 ml/min; Est GFR (African American) 121.4 ml/min; Est GFR (Non-African American) 104.7 ml/min; Magnesium 2.1 mg/dl (1.7-2.4); Potassium 3.5 mmol/L (3.5-5.1)
[2022-12-08] MEDS: HEPARIN SOD 5,000 UNIT/0.5 ML VIAL SQ SCH ×2 (08:54→21:54)
[2022-12-08] MEDS ORDERED: ACETAMINOPHEN 500 MG TAB PO PRN (09:13)
[2022-12-08 13:51] LABS: Lyme Ab IgG w/WB Rflx Negative (Negative); Lyme Ab IgM w/WB Rflx Negative (Negative)
--- NOTE | 2022-12-08 15:25 | Hospitalist Progress Note ---
Date of Service December 08, 2022 Assessment & Plan (1) Chronic left arterial ischemic stroke, MCA (middle cerebral artery): Plan: Min is a 52-year-old male with a history of prior CVA who presented with headache, dizziness, and double vision. Patient does have chronic right-sided weakness from his prior CVA, there was concern that this weakness was acutely worse. He was brought to the ER as a stroke alert. admitting physician spoke directly with neurology and MRI revealed no acute changes (2) Stroke-like symptoms: Plan: Diplopia, Weakness w/ HX CVA - Hx L MCA Stroke. Chronic R foot drop base and R arm weakness now with complete sensory and strength loss of right upper and right lower extremity in addition to sensory loss of right V1/V2/V3. Right facial strength is intact - H/a, weakness, diplopia, and complete loss of strength in R arm and leg since 8am. EKG: Normal sinus rhythm, QTc 426, no ST segment changes or T wave inversions. No known history of A-fib. - CTA-H/N:1.There is no evidence of hemorrhage, mass effect, or acute territorial ischemia noting angiographic phase technique. 2. Remote left MCA territory infarct. 3. Unremarkable CT angiogram of the brain. 4. Unremarkable CT angiogram of the neck.5. Mild emphysema. - CT-H: 1. No acute intracranial abnormality. Large chronic left MCA infarct. Given aspirin on admission MRI no acute abnormalities Strict cautions, aspiration precautions, fall precautions Target Plavix 75 mg daily moving forward and statin. Did discuss with neurology. If patient is limited to follow-up and highly likely to be lost to follow-up may be beneficial to do DAPT for 3 weeks and then convert to aspirin 81 mg as this is readily available [id number] EKG without acute ischemic changes, no evidence of A-fib Echo with bubble study is pending (3) Tobacco use: Plan: Patient with ongoing cigarette use. Counseled that this doubles the risks of MS and CVA, cessation recommended. Patient reports that he has done smoking after this Nicotine patch while inpatient offered, patient declines. (4) Head and face pain: Plan: -ordered a CT facial with contrast to r/o any peridental abscess (5) Arthralgia: Plan: complaining of severe left knee pain, neck pain, head and face pain Lyme IgG and IgM and other tick borne illnesses ESR, CRP, procal Plan DVT prophylaxis: Heparin Diet: Pending speech eval CODE STATUS: DNR/DNI Disposition: PCU for IV antihypertensives if required and stroke monitoring Continue PT/OT evaluations patient lives home alone Admission and Anticipated Discharge Date Admission Date: December 07, 2022 Subjective Patient was seen this afternoon, he was awake, resting in bed. He is complaining of pain from his upper shoulders, neck and entire head. He denies any chest pain, SOB, nausea, vomiting, reflux. He is stating he has a bad taste in his mouth. Also complaining of left knee pain. Review of Systems Review of Systems: all ROS negative unless stated above Neurologic: no falls and no syncope chronic L MCA with chronic right foot drop, RUE paresis, sensory loss, expressive aphasia. He is unable to write or read. Physical Exam Constitutional: + thin and comfortable; not in distress Neck: trachea midline, no thyromegaly Respiratory: normal respiratory effort, lungs clear to auscultation Cardiovascular: RRR, no murmur, no edema Extremities: no edema Gastrointestinal (Abdomen): normal bowel sounds, soft, nontender, no hepatosplenomegaly Musculoskeletal: right foot drop, left knee with arthritic changes pain to palpation Psychiatric: Orientation: alert and oriented x 3 Apperance: + disheveled Results & Data Results & Data Vital Signs (Past 12 Hours) Vital Signs Temp Pulse Resp BP Pulse Ox O2 Del Method 12/08/22 12:18 36.4 C L 54 L 19 127/72 97 Room Air 12/08/22 07:55 36.6 C 68 19 109/68 97 Room Air 12/08/22 04:30 36.2 C L 55 L 16 108/67 97 Room Air Laboratory Results Abnormal lab results 12/07/22 12/07/22 12/07/22 Range/Units 15:11 15:11 15:26 Lymph # (Auto) 1.07 L (1.2-3.4) K/uL [place] # (Auto) (0.11-0.59) K/uL Chloride (98-107) mmol/L POC Anion Gap 15.0 L (16-25) mmol/L POC BUN 23 H (7-18) mg/dl BUN/Creatinine Ratio 20.7 H (10-20) POC Glucose (other) 113 H (70-99) mg/dl Ur Specific [place] (1.000-1.030) Urine Glucose (UA) (Negative) 12/07/22 12/08/22 12/08/22 Range/Units 16:00 04:30 04:30 Lymph # (Auto) 3.47 H (1.2-3.4) K/uL [place] # (Auto) 0.86 H (0.11-0.59) K/uL Chloride 108 H (98-107) mmol/L POC Anion Gap (16-25) mmol/L POC BUN (7-18) mg/dl BUN/Creatinine Ratio (10-20) POC Glucose (other) (70-99) mg/dl Ur Specific [place] > 1.045 H (1.000-1.030) Urine Glucose (UA) 1+ H (Negative) Diagnostic Findings Head CT 12/07/22 15:06 CT head/brain wo con CLINICAL HISTORY: 52 years-old Male with neuro deficit, acute stroke suspected. Acute stroke like symptoms TECHNIQUE: Multiple axial CT images of the head were obtained without contrast. A dose lowering technique was utilized adhering to the principles of ALARA. CT DOSE: 1195.65 mGy.cm COMPARISON: None. FINDINGS: No acute intracranial hemorrhage, midline shift, intracranial mass, hydrocephalus, territorial ischemia or abnormal extra-axial collection. Calcifications of the falx cerebri. Large chronic left MCA infarct with encephalomalacia and ex vacuo ventriculomegaly of the left lateral ventricle. Calcifications of the falx cerebri. The calvarium is intact. Metopic suture. 1.9 cm calcified structure within the left ethmoid air cells on image 4 series 3, possibly an osteoma. Small left mastoid effusion. IMPRESSION: 1. No acute intracranial abnormality. 2. Large chronic left MCA infarct. ACT 112: Negative or not required by law. The above report was generated using voice recognition software. It may contain grammatical, syntax or spelling errors. Electronically signed by: Juan Contreras M.D. 12/07/2022 3:25 PM Head CTA 12/07/22 15:06 CT ANGIOGRAM OF THE BRAIN; CT ANGIOGRAM OF THE NECK CLINICAL HISTORY: Neurological deficit. Stroke like symptoms. Right-sided weakness. COMPARISON STUDY: Unenhanced CT of the brain performed the same day 12/07/2022. TECHNIQUE: Following the IV administration of 109 of Optiray 320, CT angiogram of the head and neck was performed from the aortic arch to the vertex. Images are reviewed in the axial, sagittal, and coronal planes. 3-D MIPS images are created and assessed. IV contrast was administered without complication. All measurements were calculated based on NASCET criteria. A dose lowering technique was utilized adhering to the principles of ALARA. FINDINGS: Brain parenchyma: Left MCA territory encephalomalacia is consistent with a remote insult. There is no evidence of hemorrhage, mass effect, or acute territorial ischemia noting angiographic phase technique. There is no evidence of enhancing mass lesion on the angiogram phase images. The ventricles, sulci, and cisterns are normal in configuration. Mehta-white matter differentiation is preserved. No extra-axial fluid collection is seen. Thoracic aorta: Visualized portions of the thoracic aorta are normal in caliber. The aortic arch demonstrates standard 3-vessel anatomy. Right carotid arterial system: The right common carotid arteries widely patent, as are the right internal and external carotid arteries. Calcified plaque is noted in the carotid bulb. Left carotid arterial system: The left common carotid artery is widely patent, as are the left internal and external carotid arteries. Calcified plaque is noted in the carotid bulb. Vertebral arteries: Widely patent bilaterally and codominant. Subclavian arteries: Widely patent bilaterally. Intracranial vasculature: The internal carotid arteries are patent at the skull base, as are the anterior and middle cerebral arteries bilaterally. There is pruning of the peripheral branches of the left MCA territory, likely due to remote hemispheric infarct. The vertebrobasilar system and posterior cerebral arteries are patent. The vertebral arteries are codominant. There is no aneurysm, high-grade stenosis, or focal vessel cut off seen throughout the intracranial circulation. Jugular veins: Patent bilaterally. Dural sinuses: Patent. Lung apices: There is mild emphysematous change. Upper lobe lung parenchyma is otherwise clear as imaged. Soft tissues: The visualized pharyngeal soft tissues are normal in appearance noting angiographic phase technique. The oropharyngeal airway appears widely patent. The salivary and thyroid glands are normal in appearance. No cervical lymphadenopathy is seen. Skeletal structures: The calvarium appears intact. The cervical spine is maintained noting mild multilevel spondylosis. No lytic or blastic lesion is seen. Orbits: The bony orbits are intact. Orbital contents are normal as visualized. Sinuses and mastoids: There is moderate mucosal thickening in the right sphenoid sinus. 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 The remaining paranasal sinuses are clear. There is a small left mastoid effusion. The right mastoid air cells are well pneumatized. Cerumen is noted within the external auditory canals. IMPRESSION: 1.There is no evidence of hemorrhage, mass effect, or acute territorial ischemia noting angiographic phase technique. 2. Remote left MCA territory infarct. 3. Unremarkable CT angiogram of the brain. 4. Unremarkable CT angiogram of the neck. 5. Mild emphysema. ACT 112: Negative or not required by law. Electronically signed by: Nick Valadez M.D. 12/07/2022 3:38 PM Neck CTA 12/07/22 15:06 CT ANGIOGRAM OF THE BRAIN; CT ANGIOGRAM OF THE NECK CLINICAL HISTORY: Neurological deficit. Stroke like symptoms. Right-sided weakness. COMPARISON STUDY: Unenhanced CT of the brain performed the same day 12/07/2022. TECHNIQUE: Following the IV administration of 109 of Optiray 320, CT angiogram of the head and neck was performed from the aortic arch to the vertex. Images are reviewed in the axial, sagittal, and coronal planes. 3-D MIPS images are created and assessed. IV contrast was administered without complication. All measurements were calculated based on NASCET criteria. A dose lowering technique was utilized adhering to the principles of ALARA. FINDINGS: Brain parenchyma: Left MCA territory encephalomalacia is consistent with a remote insult. There is no evidence of hemorrhage, mass effect, or acute territorial ischemia noting angiographic phase technique. There is no evidence of enhancing mass lesion on the angiogram phase images. The ventricles, sulci, and cisterns are normal in configuration. Mehta-white matter differentiation is preserved. No extra-axial fluid collection is seen. Thoracic aorta: Visualized portions of the thoracic aorta are normal in caliber. The aortic arch demonstrates standard 3-vessel anatomy. Right carotid arterial system: The right common carotid arteries widely patent, as are the right internal and external carotid arteries. Calcified plaque is noted in the carotid bulb. Left carotid arterial system: The left common carotid artery is widely patent, as are the left internal and external carotid arteries. Calcified plaque is noted in the carotid bulb. Vertebral arteries: Widely patent bilaterally and codominant. Subclavian arteries: Widely patent bilaterally. Intracranial vasculature: The internal carotid arteries are patent at the skull base, as are the anterior and middle cerebral arteries bilaterally. There is pruning of the peripheral branches of the left MCA territory, likely due to remote hemispheric infarct. The vertebrobasilar system and posterior cerebral arteries are patent. The vertebral arteries are codominant. There is no aneurysm, high-grade stenosis, or focal vessel cut off seen throughout the intracranial circulation. Jugular veins: Patent bilaterally. Dural sinuses: Patent. Lung apices: There is mild emphysematous change. Upper lobe lung parenchyma is otherwise clear as imaged. Soft tissues: The visualized pharyngeal soft tissues are normal in appearance noting angiographic phase technique. The oropharyngeal airway appears widely patent. The salivary and thyroid glands are normal in appearance. No cervical lymphadenopathy is seen. Skeletal structures: The calvarium appears intact. The cervical spine is maintained noting mild multilevel spondylosis. No lytic or blastic lesion is seen. Orbits: The bony orbits are intact. Orbital contents are normal as visualized. Sinuses and mastoids: There is moderate mucosal thickening in the right sphenoid sinus. 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 The remaining paranasal sinuses are clear. There is a small left mastoid effusion. The right mastoid air cells are well pneumatized. Cerumen is noted within the external auditory canals. IMPRESSION: 1.There is no evidence of hemorrhage, mass effect, or acute territorial ischemia noting angiographic phase technique. 2. Remote left MCA territory infarct. 3. Unremarkable CT angiogram of the brain. 4. Unremarkable CT angiogram of the neck. 5. Mild emphysema. ACT 112: Negative or not required by law. Electronically signed by: Nick Valadez M.D. 12/07/2022 3:38 PM Brain MRI 12/07/22 16:29 MR brain wo con CLINICAL HISTORY: cva TECHNIQUE: Multiplanar and multisequence MR images of the brain were obtained without intravenous contrast. Comparison: Comparison is made to CTA head and neck 12/07/2022 FINDINGS: No abnormal restricted diffusion is identified. The white matter is unremarkable. The ventricular system is normal in appearance. Large MCA focus of encephalomalacia is seen compatible with prior infarct. There is no mass effect or midline shift. Hemosiderin deposition is seen about the old infarct site. Calcifications of the anterior falx are noted. No extra axial fluid collections are seen. The corpus callosum, pituitary gland, and cerebellar tonsils appear grossly unremarkable. Flow voids of the major intracranial arterial vessels are identified. The imaged portions of the paranasal sinuses, mastoid air cells, and orbits are unremarkable. IMPRESSION: No acute abnormalities are seen. Prominent encephalomalacia is seen at the site of prior left MCA infarct. ACT 112: Negative or not required by law. Electronically signed by: Aristeo Bolton M.D. 12/07/2022 5:59 PM PG Care Time/CCT Total # of Minutes Spent Total Time Spent with Patient: Total time spent is greater than 50% in coordination of care (as documented) at patient's floor/unit and/or counseling patient: Coding Level of Care Code 36705 SUB INP/OBS CARE 07/25MIN Diagnoses Chronic left arterial ischemic stroke, MCA (middle cerebral artery) I69.30 Stroke-like symptoms R29.90 Tobacco use Z72.0 Head and face pain R51.9 Arthralgia M25.50
[2022-12-08] MEDS ORDERED: OPTIRAY 320 100ml IV ONE (15:40)
--- NOTE | 2022-12-08 16:24 | XCELERA ---
[id number]
--- NOTE | 2022-12-08 16:46 | CT Scan Report ---
CT facial bones w con CLINICAL HISTORY: severe pain, r/o peridontal abscess. COMPARISON STUDY: CTA of the head and neck and MRI brain December 07, 2022. TECHNIQUE: Axial images through the face were obtained following intravenous injection of 92 cc of Op tiray 320 IV. Sagittal and coronal reconstructions were viewed. Automated exposure control was utiliz ed for the study. A dose lowering technique was utilized adhering to the principles of ALARA. FINDINGS: Encephalomalacia within the left MCA distribution consistent with old infarct is noted. Thi s was shown on prior CT an MRI of the brain. The epiglottis is normal. Parotid and submandibular glan ds are unremarkable. The orbits are unremarkable. Calcified density within the left ethmoid sinuses i s incidentally noted. The maxillary teeth are absent. Numerous mandibular teeth are absent. There are multiple dental caries and periapical lucency/abscesses of the remaining mandibular teeth. No associ ated soft tissue abscesses are identified. Major vasculature of the upper neck is patent. IMPRESSION: Severe odontogenic disease, as described above. Numerous absent teeth and multiple denta l caries and periapical lucencies/abscesses. However, no associated soft tissue abscess. ACT 112: Negative or not required by law. Electronically signed by: Arun Emdond M.D. 12/08/2022 4:43 PM
[2022-12-09] MEDS: ONDANSETRON INJ 2 MG/ML 2 ML VIAL IV PRN (02:50)
[2022-12-09 05:17] LABS: Hematocrit (blood only) 43.1 % (42.0-52.0); Hemoglobin 15.3 g/dl (14.0-18.0); Mean Corpuscular Hgb Conc 35.5 g/dL (32.0-36.0); Mean Corpuscular Volume 87.4 fL (80.0-100.0); Mean Platelet Volume 9.5 fL (9.4-12.4); Platelet Count 206 K/uL (130-400); RDW Coefficient of Variation 13.6 % (11.5-14.5); RDW Standard Deviation 43.3 fL (36.4-46.3); Red Blood Count 4.93 M/uL (4.70-6.10); White Blood Count 9.56 K/ul (4.8-10.8)
[2022-12-09 05:35] LABS: Alanine Aminotransferase 16 U/L (7-52); Albumin Globulin Ratio 1.6 (0.9-2); Albumin Level 3.9 gm/dl (3.4-5.0); Alkaline Phosphatase 42 U/L (34-104); Anion Gap 6 (3-11); Aspartate Aminotransferase 15 U/L (13-39); BUN Creatinine Ratio 17.6 (10-20); Bilirubin,Total 0.5 mg/dl (0.2-1.0); Blood Urea Nitrogen 15 mg/dl (6-23); C Reactive Protein < 0.50 mg/dl (0-0.5); Calcium 9.1 mg/dl (8.6-10.3); Carbon Dioxide 24 mmol/L (21-32); Chloride 107 mmol/L (98-107); Creatinine Clr Calc Pharmacy 120.1 ml/min; Est GFR (African American) 115.3 ml/min; Est GFR (Non-African American) 99.5 ml/min; Globulin 2.5 gm/dl (2.5-4.0); Glucose 100 mg/dl (70-99(Fasting)); Potassium 3.8 mmol/L (3.5-5.1); Sodium 137 mmol/L (136-145); Total Protein 6.4 gm/dl (6.0-8.3)
--- NOTE | 2022-12-09 06:30 | Electrocardiogram Report ---
Test Reason : Blood Pressure : / mmHG Vent. Rate : 065 BPM Atrial Rate : 065 BPM P-R Int : 144 ms QRS Dur : 088 ms QT Int : 410 ms P-R-T Axes : 070 065 054 degrees QTc Int : 426 ms Normal sinus rhythm Normal ECG No previous ECGs available Confirmed by Mayito Yu ([id number]) on 12/09/2022 6:29:51 AM Referred By: Confirmed By:Mayito Yu
[2022-12-09] MEDS ORDERED: PROMETHAZINE HCL 12.5 MG in SODIUM CHLORIDE 0.9% 50 ML IV PRN (07:55)
[2022-12-09] MEDS: HEPARIN SOD 5,000 UNIT/0.5 ML VIAL SQ SCH ×2 (08:26→20:34)
--- NOTE | 2022-12-09 12:57 | Hospitalist Progress Note ---
Date of Service December 09, 2022 Assessment & Plan (1) Stroke-like symptoms: Plan: Diplopia, Weakness w/ HX CVA - Hx L MCA Stroke. Chronic R foot drop base and R arm weakness now with complete sensory and strength loss of right upper and right lower extremity in addition to sensory loss of right V1/V2/V3. Right facial strength is intact - H/a, weakness, diplopia, and complete loss of strength in R arm and leg since 8am. - EKG: Normal sinus rhythm, QTc 426, no ST segment changes or T wave inversions. No known history of A-fib. - CTA-H/N: Nothing acute detected - Given aspirin on admission [place] d/t failing swallow study - MRI no acute abnormalities - Strict cautions, aspiration precautions, fall precautions - discussed w/ neuro. If patient is limited to follow-up and highly likely to be lost to follow-up may be beneficial to do DAPT for 3 weeks and then convert to aspirin 81 mg as this is readily available OTC - formal consult placed but then cancelled by admitting attending - Echo with bubble study completed - normal LVEF 60-65%, no wma, moderate LVH. No R to L shunt noted. - MEAT CURER consulted and assessed pt swallowing, he passed and diet was ordered - PT/OT assessments completed, advised home v rehab - pt adamantly refusing rehab (2) Chronic left arterial ischemic stroke, MCA (middle cerebral artery): Plan: Chronic/stable - Residual deficits of R hemiparesis and aphasia - Not complaint with ASA use and continues to smoke (3) Tobacco use: Plan: Chronic/stable Patient with ongoing cigarette use. Counseled and cessation strongly recommended. Nicotine patch while inpatient offered, patient declines. - States that he is done smoking after this event (4) Head and face pain: Plan: Acute/stable - ordered a CT facial with contrast to r/o any peridental abscess - severe odontogenic disease, numerous absent teeth and multiple dental car ies and periapical lucencies/abscesses, no soft tissue abscess - no complaints of this today (12/09) (5) Arthralgia: Plan: Acute/stable - complaining of severe left knee pain, neck pain, head and face pain - did not endorse this on 12/09 rounds - W/u for tick borne illnesses placed - negative for lyme - Anaplasmosis, Babesia, and E. chaffeensis is pending Plan CBC and chemistry reviewed today, no acute abnormalities noted. Patient lives alone and has some help from a friend but does not know this friend's last name. PT/OT recommended home v rehab, pt refusing rehab. Case management consulted for d/c assistance. Pt active with medicare but refusing [facility] or other rehab facility. Will plan for home with home health tomorrow but pt will also need transport which cannot be arranged today. Maintain hospitalization and plan for tentative d/c tomorrow. Will d/w dr. Oropeza. No need for f/u labs tomorrow AM. Admission and Anticipated Discharge Date Admission Date: December 07, 2022 Subjective Patient was seen on rounds this morning. He reportedly had 2 episodes of emesis, one overnight and one again this AM. Was given a dose of Phenergan and currently he denies nausea. He was able to eat breakfast and has had no further vomiting. No cp or dyspnea. Physical Exam Physical Exam: GENERAL: 52 yo M who appears older than stated age and chronically ill. NAD. LUNGS: Clear to auscultation bilaterally w/o W/R/R. CARDIOVASCULAR: Regular rate and rhythm. ABDOMEN: Soft, non-tender and non-distended. No palpable masses. Bowel sounds normoactive x 4 quad. EXTREMITIES: No edema. Non-tender. Peripheral pulses +2/4. NEUROLOGIC: A&O x3. Significant aphasia. R arm hemiplegia. R leg +3/5. RAMÓN & LLE +5/5. Results & Data Results & Data Vital Signs (Past 12 Hours) Vital Signs Temp Pulse Pulse Resp BP Pulse Ox O2 Del Method 12/09/22 11:48 36.5 C 54 L 20 114/66 96 Room Air 12/09/22 08:19 36.4 C L 52 L 20 118/73 96 Room Air 12/09/22 07:25 52 L 12/09/22 04:00 36.7 C 60 20 133/82 96 Room Air Laboratory Results 12/09/22 04:51 12/09/22 04:51 PG Care Time/CCT Total # of Minutes Spent Total Time Spent with Patient: Total time spent is greater than 50% in coordination of care (as documented) at patient's floor/unit and/or counseling patient: Coding Level of Care Code 21721 SUB INP/OBS CARE 235MIN Diagnoses Stroke-like symptoms R29.90 Chronic left arterial ischemic stroke, MCA (middle cerebral artery) I69.30 Tobacco use Z72.0 Head and face pain R51.9 Arthralgia M25.50
[2022-12-09] MEDS: ASPIRIN 81 MG ECTAB PO SCH (13:04)
[2022-12-09] MEDS: CLOPIDOGREL BISULFATE 75 MG TAB PO SCH (13:05)
[2022-12-10] MEDS: ONDANSETRON INJ 2 MG/ML 2 ML VIAL IV PRN (05:50)
[2022-12-10] MEDS: ASPIRIN 81 MG ECTAB PO SCH (08:47)
[2022-12-10] MEDS: HEPARIN SOD 5,000 UNIT/0.5 ML VIAL SQ SCH (08:47)
--- NOTE | 2022-12-10 10:40 | Discharge Summary ---
Date of Service December 10, 2022 Admission HPI Per Admitting Provider Min is a 52-year-old male with a history of prior CVA who presented with headache, dizziness, and double vision. Patient does have chronic right-sided weakness from his prior CVA, there was concern that this weakness was acutely worse. He was brought to the ER as a stroke alert. Per ER: At bedside patient notes that his arm and leg strength is at baseline, but the dizziness/double vision which started at around 8 AM is new and worse. He has not had any falls, injuries, or trauma. Patient does not follow with a primary physician, his prior stroke was evaluated to [place] 8 years ago, and he is not currently taking any medications. Specifically he is not taking aspirin, Plavix, Brilinta, or effient. Patient was evaluated as a stroke alert. Patient arrived to the ER and was not a TNKase candidate due to duration of symptom onset. Patient seen at the bedside. He has complete hemiparesis and sensory loss of soft touch of his right arm and right leg. He reports he had some movement of this previously, currently has none. He reports he continues to have double vision. He continues to have a headache which is sensitive to touch in the high forehead slightly off to the left side. No tenderness overlying his temples, jaw, or cheeks. He reports he has not seen a doctor in many years. Does not take any occasions including aspirin or aspirin-like medicines. He has not had chest pressure or chest pain. No palpitations. No lightheadedness/dizziness. No nausea/vomiting. He is a current smoker, 1 pack lasts about 3 days. He has smoked since teenage years. Does not use alcohol. Denies other substance use. Denies other symptoms. Denies surgeries. Denies medication allergies. Family history reviewed. DNR/DNI. Principal Diagnosis Stroke-like symptoms Discharge Exam GENERAL: 52 yo M who appears older than stated age and chronically ill. NAD. LUNGS: Clear to auscultation bilaterally w/o W/R/R. CARDIOVASCULAR: Regular rate and rhythm. ABDOMEN: Soft, non-tender and non-distended. No palpable masses. Bowel sounds normoactive x 4 quad. EXTREMITIES: No edema. Non-tender. Peripheral pulses +2/4. NEUROLOGIC: A&O x3. Significant aphasia. R arm hemiplegia. R leg +3/5. RAMÓN & LLE +5/5. Discharge Data Allergies Allergy/AdvReac Type Severity Reaction Status Date / Time No Known Allergies Allergy Mild Unverified 07/31/08 17:29 Consultations 12/07/22 16:22 ED Decision to Admit Stat Ordered Studies Head CT 12/07/22 15:06 CT head/brain wo con CLINICAL HISTORY: 52 years-old Male with neuro deficit, acute stroke suspected. Acute stroke like symptoms TECHNIQUE: Multiple axial CT images of the head were obtained without contrast. A dose lowering technique was utilized adhering to the principles of ALARA. CT DOSE: 1195.65 mGy.cm COMPARISON: None. FINDINGS: No acute intracranial hemorrhage, midline shift, intracranial mass, hydrocephalus, territorial ischemia or abnormal extra-axial collection. Calcifications of the falx cerebri. Large chronic left MCA infarct with encephalomalacia and ex vacuo ventriculomegaly of the left lateral ventricle. Calcifications of the falx cerebri. The calvarium is intact. Metopic suture. 1.9 cm calcified structure within the left ethmoid air cells on image 4 series 3, possibly an osteoma. Small left mastoid effusion. IMPRESSION: 1. No acute intracranial abnormality. 2. Large chronic left MCA infarct. ACT 112: Negative or not required by law. The above report was generated using voice recognition software. It may contain grammatical, syntax or spelling errors. Electronically signed by: Juan Contreras M.D. 12/07/2022 3:25 PM Head CTA 12/07/22 15:06 CT ANGIOGRAM OF THE BRAIN; CT ANGIOGRAM OF THE NECK CLINICAL HISTORY: Neurological deficit. Stroke like symptoms. Right-sided weakness. COMPARISON STUDY: Unenhanced CT of the brain performed the same day 12/07/2022. TECHNIQUE: Following the IV administration of 109 of Optiray 320, CT angiogram of the head and neck was performed from the aortic arch to the vertex. Images are reviewed in the axial, sagittal, and coronal planes. 3-D MIPS images are created and assessed. IV contrast was administered without complication. All measurements were calculated based on NASCET criteria. A dose lowering technique was utilized adhering to the principles of ALARA. FINDINGS: Brain parenchyma: Left MCA territory encephalomalacia is consistent with a remote insult. There is no evidence of hemorrhage, mass effect, or acute territorial ischemia noting angiographic phase technique. There is no evidence of enhancing mass lesion on the angiogram phase images. The ventricles, sulci, and cisterns are normal in configuration. Mehta-white matter differentiation is preserved. No extra-axial fluid collection is seen. Thoracic aorta: Visualized portions of the thoracic aorta are normal in caliber. The aortic arch demonstrates standard 3-vessel anatomy. Right carotid arterial system: The right common carotid arteries widely patent, as are the right internal and external carotid arteries. Calcified plaque is noted in the carotid bulb. Left carotid arterial system: The left common carotid artery is widely patent, as are the left internal and external carotid arteries. Calcified plaque is noted in the carotid bulb. Vertebral arteries: Widely patent bilaterally and codominant. Subclavian arteries: Widely patent bilaterally. Intracranial vasculature: The internal carotid arteries are patent at the skull base, as are the anterior and middle cerebral arteries bilaterally. There is pruning of the peripheral branches of the left MCA territory, likely due to remote hemispheric infarct. The vertebrobasilar system and posterior cerebral arteries are patent. The vertebral arteries are codominant. There is no aneurysm, high-grade stenosis, or focal vessel cut off seen throughout the intracranial circulation. Jugular veins: Patent bilaterally. Dural sinuses: Patent. Lung apices: There is mild emphysematous change. Upper lobe lung parenchyma is otherwise clear as imaged. Soft tissues: The visualized pharyngeal soft tissues are normal in appearance noting angiographic phase technique. The oropharyngeal airway appears widely patent. The salivary and thyroid glands are normal in appearance. No cervical lymphadenopathy is seen. Skeletal structures: The calvarium appears intact. The cervical spine is maintained noting mild multilevel spondylosis. No lytic or blastic lesion is seen. Orbits: The bony orbits are intact. Orbital contents are normal as visualized. Sinuses and mastoids: There is moderate mucosal thickening in the right sphenoid sinus. 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 The remaining paranasal sinuses are clear. There is a small left mastoid effusion. The right mastoid air cells are well pneumatized. Cerumen is noted within the external auditory canals. IMPRESSION: 1.There is no evidence of hemorrhage, mass effect, or acute territorial ischemia noting angiographic phase technique. 2. Remote left MCA territory infarct. 3. Unremarkable CT angiogram of the brain. 4. Unremarkable CT angiogram of the neck. 5. Mild emphysema. ACT 112: Negative or not required by law. Electronically signed by: Nick Valadez M.D. 12/07/2022 3:38 PM Neck CTA 12/07/22 15:06 CT ANGIOGRAM OF THE BRAIN; CT ANGIOGRAM OF THE NECK CLINICAL HISTORY: Neurological deficit. Stroke like symptoms. Right-sided weakness. COMPARISON STUDY: Unenhanced CT of the brain performed the same day 12/07/2022. TECHNIQUE: Following the IV administration of 109 of Optiray 320, CT angiogram of the head and neck was performed from the aortic arch to the vertex. Images are reviewed in the axial, sagittal, and coronal planes. 3-D MIPS images are created and assessed. IV contrast was administered without complication. All measurements were calculated based on NASCET criteria. A dose lowering technique was utilized adhering to the principles of ALARA. FINDINGS: Brain parenchyma: Left MCA territory encephalomalacia is consistent with a remote insult. There is no evidence of hemorrhage, mass effect, or acute territorial ischemia noting angiographic phase technique. There is no evidence of enhancing mass lesion on the angiogram phase images. The ventricles, sulci, and cisterns are normal in configuration. Mehta-white matter differentiation is preserved. No extra-axial fluid collection is seen. Thoracic aorta: Visualized portions of the thoracic aorta are normal in caliber. The aortic arch demonstrates standard 3-vessel anatomy. Right carotid arterial system: The right common carotid arteries widely patent, as are the right internal and external carotid arteries. Calcified plaque is noted in the carotid bulb. Left carotid arterial system: The left common carotid artery is widely patent, as are the left internal and external carotid arteries. Calcified plaque is noted in the carotid bulb. Vertebral arteries: Widely patent bilaterally and codominant. Subclavian arteries: Widely patent bilaterally. Intracranial vasculature: The internal carotid arteries are patent at the skull base, as are the anterior and middle cerebral arteries bilaterally. There is pruning of the peripheral branches of the left MCA territory, likely due to remote hemispheric infarct. The vertebrobasilar system and posterior cerebral arteries are patent. The vertebral arteries are codominant. There is no aneurysm, high-grade stenosis, or focal vessel cut off seen throughout the intracranial circulation. Jugular veins: Patent bilaterally. Dural sinuses: Patent. Lung apices: There is mild emphysematous change. Upper lobe lung parenchyma is otherwise clear as imaged. Soft tissues: The visualized pharyngeal soft tissues are normal in appearance noting angiographic phase technique. The oropharyngeal airway appears widely patent. The salivary and thyroid glands are normal in appearance. No cervical lymphadenopathy is seen. Skeletal structures: The calvarium appears intact. The cervical spine is maintained noting mild multilevel spondylosis. No lytic or blastic lesion is seen. Orbits: The bony orbits are intact. Orbital contents are normal as visualized. Sinuses and mastoids: There is moderate mucosal thickening in the right sphenoid sinus. 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 The remaining paranasal sinuses are clear. There is a small left mastoid effusion. The right mastoid air cells are well pneumatized. Cerumen is noted within the external auditory canals. IMPRESSION: 1.There is no evidence of hemorrhage, mass effect, or acute territorial ischemia noting angiographic phase technique. 2. Remote left MCA territory infarct. 3. Unremarkable CT angiogram of the brain. 4. Unremarkable CT angiogram of the neck. 5. Mild emphysema. ACT 112: Negative or not required by law. Electronically signed by: Nick Valadez M.D. 12/07/2022 3:38 PM Brain MRI 12/07/22 16:29 MR brain wo con CLINICAL HISTORY: cva TECHNIQUE: Multiplanar and multisequence MR images of the brain were obtained without intravenous contrast. Comparison: Comparison is made to CTA head and neck 12/07/2022 FINDINGS: No abnormal restricted diffusion is identified. The white matter is unremarkable. The ventricular system is normal in appearance. Large MCA focus of encephalomalacia is seen compatible with prior infarct. There is no mass effect or midline shift. Hemosiderin deposition is seen about the old infarct site. Calcifications of the anterior falx are noted. No extra axial fluid collections are seen. The corpus callosum, pituitary gland, and cerebellar tonsils appear grossly unremarkable. Flow voids of the major intracranial arterial vessels are identified. The imaged portions of the paranasal sinuses, mastoid air cells, and orbits are unremarkable. IMPRESSION: No acute abnormalities are seen. Prominent encephalomalacia is seen at the site of prior left MCA infarct. ACT 112: Negative or not required by law. Electronically signed by: Aristeo Bolton M.D. 12/07/2022 5:[address] 12/08/22 12:25 CT facial bones w con CLINICAL HISTORY: severe pain, r/o peridontal abscess. COMPARISON STUDY: CTA of the head and neck and MRI brain December 07, 2022. TECHNIQUE: Axial images through the face were obtained following intravenous injection of 92 cc of Optiray 320 IV. Sagittal and coronal reconstructions were viewed. Automated exposure control was utilized for the study. A dose lowering technique was utilized adhering to the principles of ALARA. FINDINGS: Encephalomalacia within the left MCA distribution consistent with old infarct is noted. This was shown on prior CT an MRI of the brain. The epiglottis is normal. Parotid and submandibular glands are unremarkable. The orbits are unremarkable. Calcified density within the left ethmoid sinuses is incidentally noted. The maxillary teeth are absent. Numerous mandibular teeth are absent. There are multiple dental caries and periapical lucency/abscesses of the remaining mandibular teeth. No associated soft tissue abscesses are identified. Major vasculature of the upper neck is patent. IMPRESSION: Severe odontogenic disease, as described above. Numerous absent teeth and multiple dental caries and periapical lucencies/abscesses. However, no associated soft tissue abscess. ACT 112: Negative or not required by law. Electronically signed by: Arun Edmond M.D. 12/08/2022 4:43 PM Echocardiogram 1. Normal LV size and systolic function. EF 60-65%. No regional WMA. Moderate LVH. 2. No significant valvular disease. 3. Normal estimated RVSP 4. No right to left interatrial shunt following agitated saline administration. Hospital Course (1) Stroke-like symptoms: Diplopia, Weakness w/ HX CVA - Hx L MCA Stroke. Chronic R foot drop base and R arm weakness now with complete sensory and strength loss of right upper and right lower extremity in addition to sensory loss of right V1/V2/V3. Right facial strength is intact - H/a, weakness, diplopia, and complete loss of strength in R arm and leg since 8am. - EKG: Normal sinus rhythm, QTc 426, no ST segment changes or T wave inversions. No known history of A-fib. - CTA-H/N: Nothing acute detected - Given aspirin on admission CO d/t failing swallow study - MRI no acute abnormalities - Strict cautions, aspiration precautions, fall precautions - discussed w/ neuro. If patient is limited to follow-up and highly likely to be lost to follow-up may be beneficial to do DAPT for 3 weeks and then convert to aspirin 81 mg as this is readily available OTC - formal consult placed but then cancelled by admitting attending - Echo with bubble study completed - normal LVEF 60-65%, no wma, moderate LVH. No R to L shunt noted. - ELECTRIC ACCOUNTING MACHINE OPERATOR consulted and assessed pt swallowing, he passed and diet was ordered - PT/OT assessments completed, advised home v rehab - pt adamantly refusing rehab (2) Chronic left arterial ischemic stroke, MCA (middle cerebral artery): Chronic/stable - Residual deficits of R hemiparesis and aphasia - Not complaint with ASA use and continues to smoke (3) Tobacco use: Chronic/stable Patient with ongoing cigarette use. Counseled and cessation strongly dejuan mmended. Nicotine patch while inpatient offered, patient declines. - States that he is done smoking after this event (4) Head and face pain: Acute/stable - ordered a CT facial with contrast to r/o any peridental abscess - severe odontogenic disease, numerous absent teeth and multiple dental caries and periapical lucencies/abscesses, no soft tissue abscess - no complaints of this today (12/09) (5) Arthralgia: Acute/stable - complaining of severe left knee pain, neck pain, head and face pain - did not endorse this on 12/09 rounds - W/u for tick borne illnesses placed - negative for lyme - Anaplasmosis, Babesia, and E. chaffeensis is pending Plan Patient lives alone and has some help from a friend but does not know this friend's last name. PT/OT recommended home v rehab, pt refusing rehab. Case management consulted for d/c assistance. Pt active with medicare but refusing [facility] or other rehab facility. He is agreeable to home health referral which is being arranged by case management. He is medically and hemodynamically stable for discharge home today. Friend is to provide transport. Recommend f/u with pcp within 1 week. Plan has been d/w Dr. Oropeza who is in agreement with aforementioned. Total Time Total Time Spent Total Time Spent (In Minutes): 35 minutes Discharge Plan Discharge Items Patient Disposition: Home - Home Health Services Reason For Visit: CVA Discharge Diagnosis: stroke symptoms Activity: Resume your previous activity Non-emergency contact: Primary Care Provider Call non-emergency contact if: you have any medication questions and your symptoms worsen Follow-up/Referrals: PCP,NO [Primary Care Provider] - Diet: Heart Healthy Addtl Attending Provider Instructions: You were hospitalized for stroke-like symptoms including weakness and vision issues. Fortunately, your work up which included scans of your head and neck and an MRI which is a detailed picture of your brain showed that you did not have another stroke. However, since you are not currently taking any medications to prevent strokes in the future, you were started on two medications called Aspirin (which you can purchase over the counter) and Plavix which is a prescription medicine. These medications help to thin out your platelets which is the part of your blood that is responsible for clotting (which stops bleeding). This will help to prevent strokes in the future. You should continue taking these two medications together for the next 3 weeks. After that, you can stop the Plavix and just take over the counter baby aspirin which is 81mg daily. You most definitely need to stop smoking. Smoking will double your risk of stroke or heart attack. It is recommended that you follow up with a family doctor within 1 week of discharge or sooner if needed. You are being set up for home health services which is a team of visiting nurses, physical and occupational therapists that will visit you in your home. If you have any questions or concerns after you leave the hospital, feel free to call the nonemergency number listed on your discharge paperwork. In the event of a medical emergency, call 911. Pending Studies at Discharge: No Stand-Alone Forms: My [facility], Smoking Cessation Medications and DC Order Prescriptions: New clopidogrel 75 mg Tablet 75 mg PO DAILY Qty: 21 0RF aspirin 81 mg Tablet,Delayed Release (Dr/Ec) 81 mg PO DAILY Qty: 30 0RF Discontinued Cyclobenzaprine Hcl (Flexeril *) 10 MG tablet 10 mg PO TID 5 Days Qty: 0 0RF Hydrocodone/Acetaminophen 5MG/500MG (Vicodin 5MG/500MG) tablet 1 tab PO Q4-6HR PRN Qty: 25 0RF Rx Instructions: PAIN None (Patient States No Home Meds) . Qty: 0 Hydrocodone/Acetaminophen 5MG/500MG (Vicodin 5MG/500MG) tablet 1 - 2 tab PO Q6HR PRN Qty: 20 0RF Cyclobenzaprine Hcl (Flexeril *) 10 MG tablet 10 mg PO TID Qty: 15 0RF Propoxyphene Hcl (Darvon *) 65 MG capsule 1 tab PO Q4HR PRN Qty: 20 0RF Rx Instructions: PAIN Metoclopramide (Reglan) 10 MG tablet 10 mg PO ACHS Qty: 0 REVIEWED Qty: 0 Zolpidem Tartrate (Ambien *) 10 MG tablet 10 mg PO HS PRN Qty: 0 Patient Comments: PRN SLEEP REVIEWED Qty: 0 0RF Carisoprodol (Soma) 350 MG tablet 350 mg PO Q6HR PRN Qty: 20 0RF Hydrocodone/Acetaminophen 5MG/500MG (Vicodin 5MG/500MG) tablet 1 - 2 tabs PO Q6HR PRN Qty: 10 0RF Discharge Orders: Discharge Order (Routine); Ordered 12/10/22 Ordered By: [place] Admission Data Admit Date/Time: 12/07/22 16:28 Attending Provider: Job Oropeza Admit Provider: Tian Krishnamurthy Primary Care Provider: PCP,NO Other Providers: Tian Krishnamurthy Coding Level of Care Code 94614 INP/OBS DISCH >30 MIN Diagnoses Stroke-like symptoms R29.90 Chronic left arterial ischemic stroke, MCA (middle cerebral artery) I69.30 Tobacco use Z72.0 Head and face pain R51.9 Arthralgia M25.50 Home Health Attestation I certify that this patient is under my care and that I, or a physicians assistant softball coach working with me, had a face to-face encounter that meets the home health [id number] encounter requirements with this patient. The encounter with the patient was in whole, or in part, for the following medical condition, which is the primary reason for home health care (list medical condition): I certify that, based on my findings, the following services are medically necessary home health services: My clinical findings support the need for the above services because: Further, I certify that my clinical findings support that this patient is homebound (i.e. absences from home require considerable and taxing effort and are for medical reasons or moravian services or infrequently or of short duration when for other reasons) because: Certification for Home Health Services: Based on the above findings, I certify that this patient is confined to the home and needs intermittent halfway care, physical therapy and/or speech therapy or continues to need occupational therapy. The patient is under my care, and I have initiated the establishment of the plan of care. This patient will be followed by a physician who will periodically review the plan of care.
[2022-12-10] MEDS: CLOPIDOGREL BISULFATE 75 MG TAB PO SCH (11:00)
[2022-12-13 17:37] LABS: Babesia microti DNA Not Detected (Not Detected)
[2022-12-14 16:09] LABS: Ehrlichia chaff DNA Bld Negative (Negative)
== END 2022-12-10 18:14 | disposition home health service (06) | DRG 57 ==
LOC: ED 15:07 → INTOOBSV 16:28 → SUATTDRO 16:28 → 4W 16:28